=== PATIENT | male | born 1985 | race Caucasian/White ===

== ENCOUNTER 2023-03-11 07:21 | Emergency (ER) | payer MEDICAID ==
[~2023-03-11] VITALS: Ht 172.7 cm; Wt 70.3 kg
[2023-03-11 07:29] VITALS: BP 119/61
--- NOTE | 2023-03-11 07:40 | NUR ---
PT BIB AMBULANCE BLS, PT C/O SUDDEN MID-BACK PAIN W/TINGLING ON BILATERAL LEGS AND ARMS SINCE THIS AM. NAD.
[2023-03-11 08:02] LABS: BASOPHILS # (AUTO) 0.1 K/uL (0.00-0.22); EOSINOPHILS # (AUTO) 0.3 K/uL (0-0.4); EOSINOPHILS % (AUTO) 1.9 % (0.0-4.0); HEMATOCRIT 39.9 % (36-52); HEMOGLOBIN 13.5 g/dL (12.0-18.0); LYMPHOCYTES # (AUTO) 2.7 K/uL (2.0-11.5); LYMPHOCYTES % (AUTO) 19.4 % (20.5-51.1); MEAN CORPUSCULAR HEMOGLOBIN 29 pg (27-31); MEAN CORPUSCULAR HGB CONC 34 g/dL (33-37); MEAN CORPUSCULAR VOLUME 84.7 fL (80-94); MONOCYTES # (AUTO) 1.3 K/uL (0.8-1.0); MONOCYTES % (AUTO) 9.5 % (1.7-9.3); NEUTROPHILS # (AUTO) 9.6 K/uL (1.8-7.7); NEUTROPHILS % (AUTO) 68.2 % (42.2-75.2); PLATELET COUNT (AUTO) 196 K/uL (140-450); RED BLOOD CELL COUNT(AUTO) 4.71 MIL/uL (4.20-6.10); RED CELL DISTRIBUTION WIDTH 14.4 % (11.6-13.7)
[2023-03-11] MEDS ORDERED: ALUMINUM HYD/MAG/SIMETHICONE 30 ML UDC PO ONE (08:25)
[2023-03-11] MEDS ORDERED: LORazepam 1 MG TAB PO ONE (08:25)
[2023-03-11] MEDS ORDERED: FAMOTIDINE 20 MG TAB PO ONE (08:25)
[2023-03-11 09:02] LABS: ALBUMIN 3.8 g/dL (3.4-5.0); ANION GAP 13.5 (8-16); CARBON DIOXIDE 27.4 mmol/L (21-32); CREATININE 0.8 mg/dL (0.6-1.3); POTASSIUM 3.9 mmol/L (3.5-5.1); TOTAL BILIRUBIN 0.2 mg/dL (0.0-1.0)
[2023-03-11 09:24] LABS: APPEARANCE,URINE CLEAR (CLEAR); BILIRUBIN,URINE NEGATIVE (NEGATIVE); BLOOD, URINE NEGATIVE (NEGATIVE); COLOR,URINE YELLOW (YELLOW); LEUKOCYTE ESTERASE ,URINE NEGATIVE (NEGATIVE); NITRITE, URINE NEGATIVE (NEGATIVE); UGLUCOSE NEGATIVE (NEGATIVE)
--- NOTE | 2023-03-11 09:43 | NUR ---
IZZY AT BEDSIDE. PT STATES PAIN AND DISCONFORT IS RESOLVED.
[2023-03-11] MEDS ORDERED: FAMO-90 PO (09:49)
[2023-03-11 10:00] VITALS: BP 114/57
--- NOTE | 2023-03-11 10:01 | NUR ---
The patient's care was reviewed and supervised by ED Agency Nurse 8, RN, RN.
--- NOTE | 2023-03-11 10:02 | NUR ---
Patient discharged with v/s stable. Written and verbal after care instructions given. Patient alert, oriented and verbalized understanding of instructions. Ambulatory with steady gait. All questions addressed prior to discharge. ID band removed. Patient advised to follow up with PMD. Rx of FAMOTIDINE given. Patient educated on indication of medication including possible reaction and side effects. Opportunity to ask questions provided and answered.
== END 2023-03-11 10:02 | disposition home or self-care (01) ==
LOC: MED 07:21
DX: K29.70 Gastritis, unspecified, without bleeding (principal); M79.10 Myalgia, unspecified site; R74.01 Elevation of levels of liver transaminase levels; F17.200 Nicotine dependence, unspecified, uncomplicated; Z79.899 Other long term (current) drug therapy
CPT/HCPCS: 36415; 71045; 80053; 81003; 83690; 85025; 99284